=== PATIENT | male | born 1975 | race Caucasian/White ===

== ENCOUNTER 2017-05-17 21:06 | Emergency (ER) | payer MEDICAID, OTHER ==
[2017-05-17 21:23] VITALS: BP 133/81
[2017-05-17] MEDS ORDERED: Azithromycin 250 MG Tab ONE (21:48)
--- NOTE | 2017-05-17 21:48 | EDM.PDOC ---
ED HPI GENERAL MEDICAL PROBLEM - General Chief Complaint: General Stated Complaint: productive cough Time Seen by Provider: 05/17/17 21:15 Source of Information: Reports: Patient History Limitations: Reports: No Limitations - History of Present Illness INITIAL COMMENTS - FREE TEXT/NARRATIVE: 41 YO WM presents to ER with productive cough x 10 days. Pt reports he was seen in the clinic 5 days ago for the same and was prescribed mucinex for coughbut states it's not helping with his cough. Pt denies any fever/chills, no shortness of breath, no chest or back pain, no dizziness or nausea/vomiting. Duration: Day(s): (10) Location: Reports: Generalized Severity: Mild Improves with: Reports: None Worsens with: Reports: None Associated Symptoms: Reports: No Other Symptoms, cough w sputum. Denies: Chest Pain, Fever/Chills, Malaise, Nausea/Vomiting, Shortness of Breath - Related Data Allergies Allergy/AdvReac Type Severity Reaction Status Date / Time aspirin Allergy Nose Bleeds Verified 09/16/14 20:00 Home Meds: Home Meds Citalopram Hydrobromide [Citalopram HBr] 20 mg PO DAILY 07/28/14 [History] Methylphenidate [Ritalin SR] 20 mg PO DAILY 07/28/14 [History] Simvastatin [Simvastatin] 40 mg PO DAILY 07/28/14 [History] Cetirizine [ZyrTEC] 10 mg PO DAILY #30 tablet 05/17/17 [Rx] Social & Family History - Tobacco Use Smoking Status *Q: Former Smoker Years of Tobacco use: 3 Used Tobacco, but Quit: Yes Month Tobacco Last Used: 15 years Second Hand Smoke Exposure: No - Alcohol Use Days Per Week of Alcohol Use: 1 Number of Drinks Per Day: 1 Total Drinks Per Week: 1 - Recreational Drug Use Recreational Drug Use: No - Living Situation & Occupation Living situation: Reports: ED ROS GENERAL - Review of Systems Review Of Systems: See Below Constitutional: Reports: No Symptoms HEENT: Reports: Rhinitis Respiratory: Reports: No Symptoms Cardiovascular: Reports: No Symptoms Endocrine: Reports: No Symptoms GI/Abdominal: Reports: No Symptoms : Reports: No Symptoms Musculoskeletal: Reports: No Symptoms Skin: Reports: No Symptoms Neurological: Reports: No Symptoms Psychiatric: Reports: No Symptoms Hematologic/Lymphatic: Reports: No Symptoms Immunologic: Reports: No Symptoms ED EXAM, GENERAL - Physical Exam Exam: See Below Exam Limited By: No Limitations General Appearance: Alert, WD/WN, No Apparent Distress Ears: Normal External Exam, Normal Canal, Hearing Grossly Normal, Normal TMs Ear Exam: Bilateral Ear: Auricle Normal, Canal Normal, TM normal Nose: Nasal Drainage Throat/Mouth: Normal Inspection, Normal Lips, Normal Teeth, Normal Gums, Normal Oropharynx, Normal Voice, No Airway Compromise Head: Atraumatic, Normocephalic Neck: Normal Inspection Respiratory/Chest: No Respiratory Distress, Lungs Clear, Normal Breath Sounds, No Accessory Muscle Use, Chest Non-Tender Cardiovascular: Normal Peripheral Pulses, Regular Rate, Rhythm, No Edema, No Gallop, No JVD, No Murmur, No Rub GI/Abdominal: Normal Bowel Sounds, Soft, Non-Tender, No Organomegaly, No Distention, No Abnormal Bruit, No Mass Back Exam: Normal Inspection, Full Range of Motion, NT Extremities: Normal Inspection, Normal Range of Motion, Non-Tender, Normal Capillary Refill, No Pedal Edema Neurological: Alert, Oriented, CN II-XII Intact, Normal Cognition, Normal Gait, Normal Reflexes, No Motor/Sensory Deficits Psychiatric: Normal Affect, Normal Mood Skin Exam: Warm, Dry, Intact, Normal Color, No Rash Lymphatic: No Adenopathy Course - Vital Signs Last Recorded V/S: Last Vital Signs Temp 35.5 C 05/17/17 21:26 Pulse 83 05/17/17 21:22 Resp 18 05/17/17 21:22 BP 133/81 05/17/17 21:22 Pulse Ox 95 05/17/17 21:22 - Orders/Labs/Meds Orders: Active Orders 24 hr Category Date Time Status Azithromycin [Zithromax] Med 05/17/17 22:00 Ordered 250 mg PO DAILY Cetirizine [ZyrTEC] Med 05/17/17 22:00 Ordered 10 mg PO DAILY Medication Orders Azithromycin (Zithromax) 250 mg PO DAILY [facility] Stop: 05/22/17 09:01 Cetirizine HCl (Zyrtec) 10 mg PO DAILY [facility] Stop: 05/21/17 09:01 Meds: Medications Generic Name Dose Route Start Last Admin Trade Name Freq PRN Reason Stop Dose Admin Azithromycin 250 mg 05/17/17 22:00 Zithromax PO 05/22/17 09:01 DAILY KRANTHI Cetirizine HCl 10 mg 05/17/17 22:00 Zyrtec PO 05/21/17 09:01 DAILY KRANTHI Discontinued Medications Generic Name Dose Route Start Last Admin Trade Name Raymond PRN Reason Stop Dose Admin Azithromycin Confirm 05/17/17 21:48 Zithromax Administered 05/17/17 21:49 Dose 1,500 mg .ROUTE .STK-MED ONE Departure - Departure Time of Disposition: 21:53 Disposition: Home, Self-Care 01 Condition: Good Clinical Impression: Upper respiratory infection Qualifiers: URI type: unspecified URI Qualified Code(s): J06.9 - Acute upper respiratory infection, unspecified - Discharge Information Prescriptions: Cetirizine [ZyrTEC] 10 mg PO DAILY #30 tablet Instructions: Upper Respiratory Infection, Adult, [id number], Acute Bronchitis, [id number] Referrals: Cornelia Cavazos, [employer] [Primary Care Provider] - Forms: ED Department Discharge - My Orders Last 24 Hours: My Active Orders 05/17/17 22:00 Azithromycin [Zithromax] 250 mg PO DAILY Cetirizine [ZyrTEC] 10 mg PO DAILY - Assessment/Plan Last 24 Hours: My Active Orders 05/17/17 22:00 Azithromycin [Zithromax] 250 mg PO DAILY Cetirizine [ZyrTEC] 10 mg PO DAILY Assessment:: 1. upper respiratory tract infection Plan: 1. zpak 2. zyrtec 10mg PO QD 3. plenty of fluids 4. follow up in clinic for recheck 5. return to ER for worsening symptoms
[2017-05-17] MEDS ORDERED: Cetirizine 10 MG Tab PO SCH (22:00)
[2017-05-17] MEDS ORDERED: Azithromycin 250 MG Tab PO SCH (22:00)
== END 2017-05-17 22:17 | disposition home or self-care (01) ==
LOC: KA.ED 21:06
DX: J06.9 Acute upper respiratory infection, unspecified (principal); Z87.891 Personal history of nicotine dependence; Z88.6 Allergy status to analgesic agent
CPT/HCPCS: 99283; A9270

== ENCOUNTER 2020-03-24 21:40 | Emergency (ER) | payer MEDICARE, MEDICAID ==
--- NOTE | 2020-03-24 22:01 | EDM.PDOC ---
ED HPI GENERAL MEDICAL PROBLEM - General Chief Complaint: General Stated Complaint: vomiting Time Seen by Provider: 03/24/20 22:01 Source of Information: Reports: Patient History Limitations: Reports: No Limitations - History of Present Illness INITIAL COMMENTS - FREE TEXT/NARRATIVE: Francisco, 44-year-old male, presents to the emergency department this evening after experiencing an emesis after eating. Emesis occurred a few minutes after 9:00 this evening, his placed him in the car to transport him here to the emergency department calling on the way stating he was experiencing emesis and history of running fever. Francisco relates 1 emesis and no nausea. Stated he had been home the majority of the day sleeping as he is not felt quite well after an exposure to a family member who is positive for Covid. Presented to the [facility] today where he was tested for COVID-19 via swab and was told it could be up to 4 days for that result. He had mild Signs and Symptoms of COVID-19, With headache, mild cough but no shortness of breath. He had low-grade fever yesterday that seemingly resolved as of today. He had bowel movement this morning that he states was firm. Denies any changes in urination. Denies any intake or exposure out of the normal to food substance nor fluid intake. Denies having cough at this time, denies any abdominal pain, presents shortly after emesis occurred for evaluation. Onset: Today, Sudden Duration: Minutes: - Related Data Allergies Allergy/AdvReac Type Severity Reaction Status Date / Time aspirin Allergy Nose Bleeds Verified 03/24/20 22:39 Home Meds: Home Meds Citalopram Hydrobromide [Citalopram HBr] 20 mg PO DAILY 07/28/14 [History] Methylphenidate [Ritalin SR] 20 mg PO DAILY 07/28/14 [History] Simvastatin 40 mg PO DAILY 07/28/14 [History] Cetirizine [ZyrTEC] 10 mg PO DAILY #30 tablet 05/17/17 [Rx] Past Medical History HEENT History: Reports: Impaired Vision Cardiovascular History: Reports: High Cholesterol Respiratory History: Reports: None Neurological History: Reports: Brain Injury, Seizure Psychiatric History: Reports: Depression, Mood Swings - Past Surgical History HEENT Surgical History: Reports: None Cardiovascular Surgical History: Reports: None GI Surgical History: Reports: Appendectomy (Age 6) Social & Family History - Family History Family Medical History: Noncontributory - Living Situation & Occupation Living situation: Reports: ED ROS GENERAL - Review of Systems Review Of Systems: Comprehensive ROS is negative, except as noted in HPI. ED EXAM, GENERAL - Physical Exam Exam: See Below Free Text/Narrative:: Alert, oriented, resting comfortably in no acute distress. HEENT is negative discharge or deformity. PERRLA no icterus no injection. [place] moist mucous membranes with no erythema nor hypertrophy. Neck is soft supple no lymphadenopathy. Thorax is clear throughout with no wheezes no crackles. Cardiac is S1-S2 with no appreciated murmur. Abdomen is soft bowel sounds are present there is no tenderness to palpation no megaly palpable. There is no edema to the lower extremities. rectal is deferred No cough is induced and no abdominal nor flank pain is found on examination with normal bowel sounds. Course - Vital Signs Last Recorded V/S: Last Vital Signs Temp 36.6 C 03/24/20 22:08 Pulse 81 03/24/20 22:08 Resp 16 03/24/20 22:08 BP 120/88 03/24/20 22:08 Pulse Ox 95 03/24/20 22:08 - Orders/Labs/Meds Orders: Active Orders 24 hr Category Date Time Status Chest 1V Frontal [CR] Stat Exams 03/24/20 22:23 Ordered Labs: Laboratory Tests 03/24/20 03/24/20 Range/Units 22:00 22:00 WBC 3.38 L (5.00-10.00) 10^3/uL RBC 4.89 (4.50-6.00) 10^6/uL Hgb 15.4 (13.0-17.0) g/dL Hct 45.9 (40.0-52.0) % MCV 93.9 H (82.0-92.0) fL MCH 31.5 H (27.0-31.0) pg MCHC 33.6 (32.0-36.0) g/dL RDW 13.5 (11.5-14.5) % Plt Count 117 L (150-400) 10^3/uL MPV 11.4 H (7.4-10.4) fL Immature Gran % (Auto) 0.0 (0.0-5.0) % Neut % (Auto) 67.4 (50.0-70.0) % Lymph % (Auto) 24.3 (20.0-40.0) % [place] % (Auto) 8.0 (2.0-8.0) % Eos % (Auto) 0.0 L (1.0-3.0) % Baso % (Auto) 0.3 (0.0-1.0) % Neut # (Auto) 2.28 L (2.50-7.00) 10^3/uL Lymph # (Auto) 0.82 L (1.00-4.00) 10^3/uL [place] # (Auto) 0.27 (0.10-0.80) 10^3/uL Eos # (Auto) 0.00 L (0.10-0.30) 10^3/uL Baso # (Auto) 0.01 (0.00-0.10) 10^3/uL Immature Gran # (Auto) 0.00 (0.00-0.50) 10^3/uL Sodium 133 L D (136-145) mmol/L Potassium 3.9 (3.3-5.3) mmol/L Chloride 98 (98-115) mmol/L Carbon Dioxide 26.4 (21.0-32.0) mmol/L Anion Gap 12.5 (5-15) mmol/L BUN 12 (6-25) mg/dL Creatinine 0.66 (0.51-1.17) mg/dL Est Cr Clr Drug Dosing 135.30 mL/min Estimated GFR (MDRD) > 60 mL/min Glucose 130 H (75 - 99) mg/dL Calcium 9.1 (8.7-10.3) mg/dL Total Bilirubin 0.3 (0.2-1.0) mg/dL AST 28 (15-37) U/L ALT 51 (12-78) U/L Alkaline Phosphatase 85 (46-116) IU/L Total Protein 7.4 (6.4-8.2) g/dL Albumin 3.96 (3.00-4.80) g/dL - Radiology Interpretation Free Text/Narrative:: 1 view chest x-ray shows no evidence of hemopneumothorax nor consolidation. Over read pending. Departure - Departure Time of Disposition: 22:46 Disposition: Home, Self-Care 01 Condition: Good Clinical Impression: Gastroenteritis, History of vomiting, Close exposure to COVID-19 virus, Hyperglycemia - Discharge Information Referrals: Christian Salgado PRESS SET UP PERSON [Nurse Practitioner] - Forms: ED Department Discharge Additional Instructions: You need to go home and rest. You need to remain quarantined until you are Covid 19 test results are given to you. Eat a bland diet, avoiding dairy products, spicy foods, caffeinated beverages, alcohol, and carbonated beverages, until your symptoms have resolved. Avoid high sugar foods as your blood sugar was slightly elevated which may be a stress response. Banana, rice, apple, and toast if you should develop diarrhea. You may use Tylenol for fever and pain, limit the use of ibuprofen unless you are able to eat as it can cause irritation to the stomach. Follow-up with your clinic as needed, and in the next 2 weeks for reevaluation of your blood glucose levels, return to the emergency department if severe illness should develop. Sepsis Event Note (ED) - Focused Exam Vital Signs: Vital Signs Temp Pulse Resp BP Pulse Ox 03/24/20 22:08 36.6 C 81 16 120/88 95 - Problem List & Annotations (1) History of vomiting SNOMED Code(s): 408409672 Code(s): Z87.898 - PERSONAL HISTORY OF OTHER SPECIFIED CONDITIONS Status: Acute Priority: Medium (2) Gastroenteritis SNOMED Code(s): 88838996 Code(s): K52.9 - NONINFECTIVE GASTROENTERITIS AND COLITIS, UNSPECIFIED Status: Acute Priority: Medium (3) Close exposure to COVID-19 virus SNOMED Code(s): 738012796 Code(s): Z20.828 - CONTACT W AND EXPOSURE TO OTH VIRAL COMMUNICABLE DISEASES Status: Acute Priority: Medium (4) Hyperglycemia SNOMED Code(s): 55677031 Code(s): R73.9 - HYPERGLYCEMIA, UNSPECIFIED Status: Acute Priority: Medium Annotation/Comment:: Need recheck at the clinic as first event - Problem List Review Problem List Initiated/Reviewed/Updated: Yes - My Orders Last 24 Hours: My Active Orders 03/24/20 22:23 Chest 1V Frontal [CR] Stat - Assessment/Plan Last 24 Hours: My Active Orders 03/24/20 22:23 Chest 1V Frontal [CR] Stat Plan: You need to go home and rest. You need to remain quarantined until you are Covid 19 test results are given to you. Eat a bland diet, avoiding dairy products, spicy foods, caffeinated beverages, alcohol, and carbonated beverages, until your symptoms have resolved. Avoid high sugar foods as your blood sugar was slightly elevated which may be a stress response. Banana, rice, apple, and toast if you should develop diarrhea. You may use Tylenol for fever and pain, limit the use of ibuprofen unless you are able to eat as it can cause irritation to the stomach. Follow-up with your clinic as needed, and in the next 2 weeks for reevaluation of your blood glucose levels, return to the emergency department if severe illness should develop.
[2020-03-24 22:41] LABS: ANION GAP 12.5 mmol/L (5-15); CHLORIDE,CL 98 mmol/L (98-115); SODIUM,NA 133 mmol/L (136-145)
[2020-03-24 23:14] VITALS: BP 116/83; PULSE 80
--- NOTE | 2020-03-25 10:28 | CR ---
[id number] RAD/RAD Chest PA or AP 1V EXAM: RAD Chest PA or AP 1V INDICATION: EMESIS,COUGH COMPARISON: None. DISCUSSION: Cardiomediastinal silhouette is normal in size and contour. No infiltrate, effusion, pneumothorax, or edema. IMPRESSION: No acute cardiopulmonary abnormality. Denilson Gutierres DO 03/25/20 1027 Thank you for allowing us to participate in the care of your patient.
== END 2020-03-24 23:00 | disposition home or self-care (01) ==
LOC: KA.ED 21:40
DX: K52.9 Noninfective gastroenteritis and colitis, unspecified (principal); R73.9 Hyperglycemia, unspecified; E78.00 Pure hypercholesterolemia, unspecified; F32.9 Major depressive disorder, single episode, unspecified; Z88.6 Allergy status to analgesic agent; Z79.899 Other long term (current) drug therapy; Z20.828 Contact with and (suspected) exposure to other viral communicable diseases
CPT/HCPCS: 71045; 80053; 85025; 99284-25